=== PATIENT | female | born 2000 | race Caucasian/White ===

== ENCOUNTER 2021-08-25 07:53 | Outpatient (CLI) | payer BC ==
[2021-08-25] MEDS ORDERED: Sodium Bicarbonate 2.5 MEQ/5 ML VIAL ONE (08:24)
[2021-08-25] MEDS ORDERED: EPINEPHrine 1 MG/ML AMP ONE (08:24)
[2021-08-25] MEDS ORDERED: Lidocaine 1% PF 5 ML VIAL ONE (08:24)
[2021-08-25 11:22] VITALS: BP 126/81; TEMP 97.8
[2021-08-26] MEDS ORDERED: FLU VACC QS2021-22(6MOS UP)/PF 60 MCG/0.5 ML SYRINGE IM ONE (12:00)
[2021-08-26] MEDS ORDERED: Prevnar 13-Val Conj/PF 0.5 ML SYRINGE IM ONE (12:00)
== END 2021-08-25 07:54 | disposition home or self-care (01) ==
LOC: CSHRAD 07:53
PROVIDERS: ATTEND Orthopaedic Surgery
DX: M75.122 Complete rotator cuff tear or rupture of left shoulder, not specified as traumatic (principal); Z98.890 Other specified postprocedural states
CPT/HCPCS: 23350; J0171

== ENCOUNTER 2021-09-23 06:30 | Emergency (ER) | payer BC ==
[2021-09-23] MEDS ORDERED: Lidocaine 1% (PF) 30 ML VIAL ONE (07:14)
[2021-09-23] MEDS ORDERED: Ketorolac Tromethamine 30 MG/ML VIAL ONE (07:23)
== END 2021-09-23 09:40 | disposition home or self-care (01) ==
LOC: CSHERS 06:30
DX: M25.562 Pain in left knee (principal)
CPT/HCPCS: 87205; 96372; J1885; J2001